=== PATIENT | male | born 1975 | race Caucasian/White ===

== ENCOUNTER 2023-06-18 15:56 | Emergency (ER) | payer OTHER, SELFPAY ==
[2023-06-18 16:02] VITALS: BP 142/93; PULSE 78; TEMP 36.6; O2SAT 97; BMI 25.8
--- NOTE | 2023-06-18 16:21 | ED_ITS ---
HPI - Headache General Chief Complaint: Eye Problems Stated Complaint: Vision Disturbance Time Seen by Provider: 06/18/23 16:03 Source: patient and family Mode of arrival: walk-in History of Present Illness HPI Narrative: This patient is here with his for evaluation of some visual changes in his right eye. He is now just also starting to develop a little bit of headache. This patient's had headaches since he was in high school. He had a high school CT scan of his head at that time it was normal. He also had a traumatic injury to his head and he had a CAT scan about 4 years ago for that and that was also normal. He was at work today and they started developing flashing lights in his right eye. That has gotten better. He did not have a visual field loss. Sometimes he had his visual symptoms similar to this and sometimes he actually has a visual field loss but not today. He does not have a stiff neck, the light is not bothering him, no photo or phono sensitivity. He has not had any nausea. No recent head trauma or injury. He seems to be somewhat stressed and admits to the same. He has not had any sinus infections recently no pressure in the sinuses. No recent upper respiratory symptoms. This was not an abrupt or booming onset headache. He said actually the headache is not very bad is just concerned because his symptoms were in his right eye and not in his left eye which are where they typically are. He has no family history of any type of aneurysms or [employer] vascular diseases. He has no symptoms in the peripheral nervous system such as paresis paresthesias tingling or numbness. He has a past neuro some tingling in his left arm with the headaches but nothing like that today Related Data Allergies Allergy/AdvReac Type Severity Reaction Status Date / Time No Known Drug Allergies Allergy Verified 06/18/23 16:06 Exam Narrative Exam Narrative: Awake alert [place] x 3. Does not appear acutely ill. The light does not seem to bother him today. His neck is soft and supple there is no nuchal rigidity or meningeal irritation. HEENT examination shows no conjunctivitis. Extraocular muscles are normal. Pupillary light response both direct and consensual is perfectly normal. Pupils are 5 mm bilaterally. Funduscopic examination shows normal cup-to-disc ratio with normal AV ratio and he does not have good spontaneous venous pulsations bilaterally with no palpable edema. Confrontation testing was done and shows no loss of visual [place]. There is no nystagmus with lateral gaze. Rest ENT examination was normal. He He is neurological examination in general shows normal cognition, normal mentation good history giving and no evidence of confusion or altered mental status. He has normal trunk movement of the extremities. Constitutional Vital Signs, click to edit/add: Last Vital Signs Temp 97.9 F 06/18/23 16:02 Pulse 78 06/18/23 16:02 Resp 18 06/18/23 16:02 BP 142/93 H 06/18/23 16:02 Pulse Ox 97 06/18/23 16:02 Course Vital Signs Vital signs: Vital Signs Temperature 97.9 F 06/18/23 16:02 Pulse Rate 78 06/18/23 16:02 Respiratory Rate 18 06/18/23 16:02 Blood Pressure 142/93 H 06/18/23 16:02 Pulse Oximetry 97 06/18/23 16:02 Temperature 97.9 F 06/18/23 16:02 Pulse Rate 78 06/18/23 16:02 Respiratory Rate 18 06/18/23 16:02 Blood Pressure 142/93 H 06/18/23 16:02 Pulse Oximetry 97 06/18/23 16:02 MDM - Headache MDM Narrative Medical decision making narrative: This patient does not have a sudden onset or abrupt severe headache. We have offered him a CT scan but I do not believe it being is necessary today and he and his agree with that. I think we can go ahead and treat him. He does want to go back to work. I have strongly encouraged him to keep a headache log book for his primary care doctor so they can evaluate the need for prophylactic medication. We could not identify any specific triggers today Discharge Plan Discharge Stand Alone Forms: Portal Instructions Chief Complaint: Eye Problems Clinical Impression: Ophthalmic migraine Patient Disposition: Home, Self-Care Time of Disposition Decision: 16:33 Print Language: [place] Additional Instructions: Follow-up with your primary care doctor to discuss further treatment options Referrals: Juvencio Martinez MD [Primary Care Provider] - 1 week
[2023-06-18] MEDS: METOCLOPRAMIDE HCL 10 MG/2 ML VIAL IM (16:41)
[2023-06-18] MEDS: KETOROLAC TROMETHAMINE 10 MG TABLET 20 MG PO (16:41)
[2023-06-18 16:57] VITALS: BP 122/88; PULSE 70
== END 2023-06-18 17:05 | disposition home or self-care (01) ==
PROVIDERS: Emergency Provider Emergency Medicine Emergency Medical Services; PCP Family Medicine
DX: G43.B0 Ophthalmoplegic migraine, not intractable (principal)
CPT/HCPCS: 96372; 99284